=== PATIENT | male | born 1980 | race Two or more races ===

== ENCOUNTER → 2020-12-04 00:07 | Outpatient (CLI) | payer OTHER | END | disposition home or self-care (01) | LOC: PPH VACUNA 00:07 | DX: Z23 Encounter for immunization (principal) ==

== ENCOUNTER → 2021-05-08 08:30 | Outpatient (CLI) | payer OTHER | END | disposition home or self-care (01) | LOC: PPH VACUNA 08:30 | PROVIDERS: ATTEND Emergency Medicine Pediatric Emergency Medicine | DX: Z23 Encounter for immunization (principal) ==